=== PATIENT | male | born 1955 | race Caucasian/White ===

== ENCOUNTER 2017-04-28 14:31 | Emergency (ER) | payer OTHER, BC ==
[~2017-04-28] VITALS: Ht 190.5 cm; Wt 97.4 kg
[~2017-04-28 14:31] MED LIST: ASPIRIN EC81 MG PO; ATROVENT HFA12.9 GM INH; FAMOTIDINE20 MG PO; GUIATUSS AC SY120 ML PO; HYDROMORPHONE HC4 MG PO; IBUPROFEN800 MG PO; KEFLEX500 MG PO; LANTUS100 UNITS/ SUB-Q; LISINOPRIL40 MG PO; NORCO 10-325 T1 EACH PO; NORCO 5-325 TA1 EACH PO; PROVENTIL HFA6.7 GM INH; ULTRAM50 MG PO; XOPENEX HFA15 GM INH; ZOLOFT25 MG PO
[2017-04-28] MEDS ORDERED: HYDROCODON-ACE1 EAC8 PO (14:40)
== END 2017-04-28 15:54 | disposition home or self-care (01) ==
LOC: ED 14:31
DX: S90.32XA Contusion of left foot, initial encounter (principal); E11.9 Type 2 diabetes mellitus without complications; I10 Essential (primary) hypertension; F17.200 Nicotine dependence, unspecified, uncomplicated; Z79.4 Long term (current) use of insulin; Z79.899 Other long term (current) drug therapy; W20.8XXA Other cause of strike by thrown, projected or falling object, initial encounter; Y92.69 Other specified industrial and construction area as the place of occurrence of the external cause; Y99.0 Civilian activity done for income or pay
CPT/HCPCS: 73630; 99283

== ENCOUNTER 2019-02-24 10:27 | Emergency (ER) | payer BC ==
[~2019-02-24] VITALS: Ht 190.5 cm; Wt 97.4 kg
[~2019-02-24 10:27] MED LIST changes: +HYDROCODON-ACE1 EAC8 PO
--- OUTSIDE RECORDS SUMMARY | 2019-02-24 10:30 | XMS ---
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 Maru has no Care Guidelines for this patient. Selam VISIT COUNT (12 MO.) 1 TONE Bernabe TOTAL 1 NOTE: Visits indicate total known visits. ED/UCC VISIT TRACKING (12 MO.) 02/24/2019 10:29 TONE [place] TYPE: Emergency COMPLAINT: - UPPER LEFT CHEST PAIN INPATIENT VISIT TRACKING (12 MO.) No inpatient visits to display in this time frame [email or web address]
[2019-02-24] MEDS ORDERED: NORCO 7.5-3251 EACH PO (11:47)
== END 2019-02-24 11:59 | disposition home or self-care (01) ==
LOC: ED 10:27
DX: S29.011A Strain of muscle and tendon of front wall of thorax, initial encounter (principal); X50.9XXA Other and unspecified overexertion or strenuous movements or postures, initial encounter; E11.9 Type 2 diabetes mellitus without complications; I10 Essential (primary) hypertension; F17.200 Nicotine dependence, unspecified, uncomplicated; Z79.4 Long term (current) use of insulin; Z79.899 Other long term (current) drug therapy
CPT/HCPCS: 71046; 96372; 99284-25; 99406; J1885

== ENCOUNTER 2020-07-14 11:21 | Emergency (ER) | payer BC ==
[~2020-07-14] VITALS: Ht 188 cm; Wt 83.0 kg
[~2020-07-14 11:21] MED LIST changes: +NORCO 7.5-3251 EACH PO
[2020-07-14] MEDS ORDERED: PERCOCET 5-3251 EACH PO (11:45)
[2020-07-14] MEDS ORDERED: MORPHINE SULFAT15 M1 PO (11:50)
[2020-07-14] MEDS ORDERED: PREDNISONE20 MG PO (12:31)
[2020-07-14] MEDS ORDERED: DOXYCYCLINE HY100 MG PO (12:31)
[2020-07-14] MEDS ORDERED: VENTOLIN HFA18 GM INH (12:31)
--- NOTE | 2020-07-14 13:19 | EKG ---
[facility] [address] [facility] [place], [place] [address] Signed Normal sinus rhythm Right bundle branch block Abnormal ECG No previous ECGs available Confirmed by JT HAN DO ([id number]) on 07/14/2020 1:19:36 PM Electronically Signed By: JT HAN DO 07/14/20 1319 PATIENT NAME: LAY KIDD Electrocardiogram DATE OF : 59 PHYSICIAN: JT HAN DO REPORT #: [id number] REPORT IS CONFIDENTIAL AND NOT TO BE RELEASED WITHOUT AUTHORIZATION
== END 2020-07-14 12:47 | disposition home or self-care (01) ==
LOC: ED 11:21
DX: J40 Bronchitis, not specified as acute or chronic (principal); R07.89 Other chest pain; E11.9 Type 2 diabetes mellitus without complications; I10 Essential (primary) hypertension; F17.200 Nicotine dependence, unspecified, uncomplicated; Z79.4 Long term (current) use of insulin; Z79.899 Other long term (current) drug therapy; Z79.891 Long term (current) use of opiate analgesic
CPT/HCPCS: 71045; 80053; 83735; 84484; 85025; 85379; 93005; 93010; 96374; 96375; 99285-25; J2270; J2405

== ENCOUNTER 2022-04-10 13:41 | Emergency (ER) | payer OTHER ==
[~2022-04-10] VITALS: Ht 188 cm; Wt 90.7 kg
[~2022-04-10 13:41] MED LIST changes: +DOXYCYCLINE HY100 MG PO; +MORPHINE SULFAT15 M1 PO; +PERCOCET 5-3251 EACH PO; +PREDNISONE20 MG PO; +VENTOLIN HFA18 GM INH
--- OUTSIDE RECORDS SUMMARY | 2022-04-10 13:44 | XMS ---
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 ERoger VISIT COUNT (12 MO.) 1 TONE Bernabe TOTAL 1 NOTE: Visits indicate total known visits. ED/UCC VISIT TRACKING (12 MO.) 04/10/2022 13:42 TONE [place] TYPE: Emergency COMPLAINT: - DIFFICULTY BREATHING INPATIENT VISIT TRACKING (12 MO.) No inpatient visits to display in this time frame [id number]
[2022-04-10] MEDS ORDERED: DULOXETINE HCL30 MG PO (13:59)
[2022-04-10] MEDS ORDERED: PREDNISONE20 MG PO (16:49)
--- NOTE | 2022-04-10 19:17 | EKG ---
[facility] [address] [facility] [place] [address] Signed Normal sinus rhythm with sinus arrhythmia Right bundle branch block Abnormal ECG When compared with ECG of 14-JUL-2020 11:26, ST elevation now present in Inferior leads Confirmed by CHARLES HARE MD ([id number]) on 04/10/2022 7:17:27 PM Electronically Signed By: CHARLES HARE MD 04/10/221916 PATIENT NAME: EDGARDO KIDDMARÍA CELESTE Electrocardiogram DATE OF : 59 PHYSICIAN: CHARLES HARE MD REPORT #: [id number] REPORT IS CONFIDENTIAL AND NOT TO BE RELEASED WITHOUT AUTHORIZATION
== END 2022-04-10 17:00 | disposition home or self-care (01) ==
LOC: ED 13:41
DX: J44.9 Chronic obstructive pulmonary disease, unspecified (principal); I10 Essential (primary) hypertension; E11.9 Type 2 diabetes mellitus without complications; F17.200 Nicotine dependence, unspecified, uncomplicated; Z71.6 Tobacco abuse counseling; Z79.899 Other long term (current) drug therapy; Z79.4 Long term (current) use of insulin
CPT/HCPCS: 36415; 71045; 80053; 83735; 84484; 85025; 85379; 93005; 93010; 94640; 94664; 99285-25; 99406; J7512

== ENCOUNTER 2022-11-27 07:45 | Day surgery (SDC) | payer MEDICARE, OTHER ==
[2022-11-19 10:13] VITALS: BP 126/82
[~2022-11-27] VITALS: Ht 188 cm; Wt 88.6 kg
[~2022-11-27 07:45] MED LIST changes: +BAYER CHEWABLE81 MG PO; +DULOXETINE HCL30 MG PO; -PERCOCET 5-3251 EACH PO; +PERCOCET 7.5-31 EACH PO; +PRAVASTATIN SOD40 MG PO; +SENNA8.6 MG PO; +VENTOLIN HFA18 GM
[2022-11-27 07:55] VITALS: BP 144/77
--- NOTE | 2022-11-27 10:33 | NUR ---
11/27/22 1033 Comfort Mejia 1027-PT TO PACU IN LL POSITION. EYES CLOSED. PT RESPONDS TO VERBAL AND TACTILE STIMULI. KEEPS EYES CLOSED DOES NOT FOLLOW COMMANDS. BREATHING EASY AND UNLABORED. SPO2 >95% ON 2 L O2 VIA NC. 1033-PT SLEEPING COMFORTABLY IN LL POSITION. EYES CLOSED. PT REPOSITIONS SELF IN LL POSITION. BREATHING EASY AND UNLABORED. SPO2 >95% ON 2 L O2 VIA NC.
[2022-11-27 11:07] VITALS: BP 122/64
--- NOTE | 2022-11-28 07:32 | OR ---
[facility] [address] [place], [place] [address] Signed DATE OF OPERATION: 11/27/2022 SURGEON: Jaspreet Stein MD PREOPERATIVE DIAGNOSIS: Screening. POSTOPERATIVE DIAGNOSES: 1. 7 mm sessile polyp at 60 cm (left colon, snare). 2. Minimal internal hemorrhoids. PROCEDURE: Colonoscopy with snare polypectomy. ESTIMATED BLOOD LOSS: None. INDICATIONS: Lay is a 67-year-old gentleman, asked to see me for a colonoscopy. He spoke of a negative colonoscopy more than 10 years ago while he was living in [facility]. He is also known to have history of hepatitis C with cirrhosis of the liver and portal hypertension. He was treated for the hepatitis C and now the counts are undetectable. He said his blood work and his splenomegaly have stabilized. He always has some thrombocytopenia with a platelet count around 100,000. He has had his gallbladder [place] [address] Mendoza. He said he is adopted and has no knowledge of his family history. He had a lung nodule evaluated by his dry cure worker was turned out to be negative. Apparently, it was due to his emphysema. He said overall he does not feel well and now on Medicare. In the office, I had given him a pamphlet on colonoscopy. We reviewed the nature of the test. There is risk including, but not limited to gas bloating, crampy abdominal pain, bleeding, perforation requiring surgery, and missed diagnosis. We also discussed the need for monitored anesthesia care given his advanced medical issues including his cirrhosis and daily need for narcotics. He had expressed understanding and wished to proceed. PROCEDURE NOTE: Lay was taken into our endoscopy suite and placed in the left lateral decubitus position. He was given monitored anesthesia care with propofol per our nurse gaming cage worker. A digital rectal exam was performed and this was unremarkable. Really no external hemorrhoids. Good sphincter tone. We did not specifically check the prostate. The adult colonoscope was introduced and advanced under direct visualization of the Electronically Signed By: JASPREET STEIN MD 11/28/22 0732 PATIENT NAME: LAY KIDD OPERATIVE REPORT DATE OF : 59 REPORT #: [id number] PHYSICIAN: JASPREET STEIN MD PCP: VERA VALENCIA REPORT IS CONFIDENTIAL AND NOT TO BE RELEASED WITHOUT AUTHORIZATION [facility] [address] [place], [place] [address] Signed camera. We needed a little extra sedation and abdominal compression to get the scope directly into the cecum itself. His prep was quite good. We could easily see the appendiceal orifice and the ileocecal valve. The scope was then slowly withdrawn. He had a 7 mm sessile polyp back at 60 cm in his left colon. We removed it easily with the help of the snare and suctioned it through our scope for pathologic review. All hemostasis was excellent. We did not see any diverticula. The rectum was unremarkable. Upon retroflexion of the scope, he has minimal internal hemorrhoid columns. After this, the gas was suctioned out and the colonoscope removed. Lay tolerated the procedure quite well. RECOMMENDATIONS: I will see Lay back in my office in 7 to 14 days to review his results. Jaspreet Stein MD ALB/MODL /[id number] cc: MD Vera Chiang PA Copies: JASPREET STEIN MD, JUDITH PA ~ Electronically Signed By: JASPREET STEIN MD 11/28/22 0732 PATIENT NAME: LAY KIDD OPERATIVE REPORT DATE OF : 59 REPORT #: [id number] PHYSICIAN: JASPREET STEIN MD PCP: VERA VALENCIA REPORT IS CONFIDENTIAL AND NOT TO BE RELEASED WITHOUT AUTHORIZATION
--- NOTE | 2022-11-29 14:51 | PATH ---
[facility] [address] [facility] [place], [place] [address] Signed SPECIMEN(S): A COLON BIOPSY AT 60 CM SPECIMEN SOURCE: A. COLON BIOPSY AT 60 CM CLINICAL HISTORY: Screening. FINAL PATHOLOGIC DIAGNOSIS: Colon biopsy at 60 cm: - Tubular adenoma (one fragment). JVR:[facility] MICROSCOPIC EXAMINATION: Histologic sections of all submitted blocks are examined by light microscopy. These findings, together with the gross examination, support the pathologic diagnosis. GROSS DESCRIPTION: The specimen, labeled and designated "Nathan colon biopsy at 60 cm," is received in formalin and consists of one pérez soft tissue fragment, 0.4 cm. Entirely submitted in (A1). JS (under the direct supervision of a pathologist) The Gross Description was prepared using a voice recognition system. The report was reviewed for accuracy; however, sound-alike word errors, addition and/or deletions may occur. If there is any question about this report, please contact Client Services. PERFORMING LABORATORY: Technical component was performed by [facility], [address] [place] [address] (CLIA# [id number]). Professional interpretation was performed by [facility], [address] [place] [id number] (CLIA#: [id number]). Diagnostician: Hussain Villra MD Pathologist Electronically Signed 11/29/2022 Copies: PATIENT NAME: LAY KIDD PATHOLOGY DATE OF : 59 REPORT #: [id number] PHYSICIAN: STEVAN PATHOLOGY PCP: KONRAD VALENCIA REPORT IS CONFIDENTIAL AND NOT TO BE RELEASED WITHOUT AUTHORIZATION [address] [address] Signed ~ PATIENT NAME: LAY KIDD PATHOLOGY DATE OF : 59 REPORT #: [id number] PHYSICIAN: STEVAN HA PCP: KONRAD VALENCIA REPORT IS CONFIDENTIAL AND NOT TO BE RELEASED WITHOUT AUTHORIZATION
== END 2022-11-27 11:05 | disposition home or self-care (01) ==
LOC: DS 07:45 → OPS 07:45 → DS 09:00 → OPS 09:00
PROVIDERS: ATTEND Colon & Rectal Surgery
PROC: 0DBM8ZX Excision of Descending Colon, Via Natural or Artificial Opening Endoscopic, Diagnostic (ICD-10-PCS; principal; 2022-11-27 09:00)
DX: Z12.11 Encounter for screening for malignant neoplasm of colon (principal); K74.60 Unspecified cirrhosis of liver; J44.9 Chronic obstructive pulmonary disease, unspecified; G89.4 Chronic pain syndrome; F32.A Depression, unspecified; E11.9 Type 2 diabetes mellitus without complications; I10 Essential (primary) hypertension; K64.8 Other hemorrhoids; D12.4 Benign neoplasm of descending colon
CPT/HCPCS: 00812; J2704; J7121

== ENCOUNTER 2024-08-20 09:15 | Emergency (ER) | payer MEDICARE, MEDICAID ==
[~2024-08-20] VITALS: Ht 188 cm; Wt 81.7 kg
[2024-08-20] MEDS ORDERED: PERCOCET 5-3251 EACH PO (09:31)
[2024-08-20] MEDS ORDERED: HYDROmorphone HCL 1 MG/ML SYR IM ONE (10:15)
[2024-08-20] MEDS ORDERED: CYCLOBENZAPRINE HCL 10 MG TAB PO ONE (10:15)
[2024-08-20 11:17] VITALS: BP 127/79
== END 2024-08-20 11:17 | disposition home or self-care (01) ==
LOC: ED 09:15
DX: M54.2 Cervicalgia (principal); I10 Essential (primary) hypertension; E11.9 Type 2 diabetes mellitus without complications; Z87.81 Personal history of (healed) traumatic fracture; F17.200 Nicotine dependence, unspecified, uncomplicated
CPT/HCPCS: 96372; 99283; J1171

== ENCOUNTER 2024-12-12 20:07 | Emergency (ER) | payer MEDICARE ==
[~2024-12-12] VITALS: Ht 188 cm; Wt 81.5 kg
[~2024-12-12 20:07] MED LIST changes: +PERCOCET 5-3251 EACH PO
[2024-12-12] MEDS ORDERED: ASPIRIN 81 MG CHEW ONE (20:10)
[2024-12-12] MEDS ORDERED: ASPIRIN 81 MG CHEW PO ONE (20:15)
[2024-12-12] MEDS ORDERED: NITROGLYCERIN 0.4 MG SUBL SL PRN (20:15)
[2024-12-12 20:18] LABS: BASOPHILS 0.2 % (0.2-1.2); EOSINOPHILS 2.3 % (0.8-7.0); LYMPHOCYTES 15.7 % (21.8-53.1); MCH 29.2 PG (25.7-32.2); MCHC 33.3 g/dL (32.3-36.5); MCV 87.7 fL (79.0-92.2); MONOCYTES 6.6 % (5.3-12.2); NEUTROPHILS 74.9 % (34.0-67.9); RBC 5.28 M/uL (4.63-6.08)
[2024-12-12 20:27] LABS: INR 1.04 (0.80-1.30); PROTIME 12.9 Sec (11.2-14.2)
[2024-12-12 20:35] LABS: ALT (SGPT) 22.0 U/L (14-59); AST (SGOT) 15.0 U/L (15-37); GLOMERULAR FILTRATION RATE,EST 82.0 mL/min (>60); PROTEIN, TOTAL 7.6 g/dL (6.4-8.2); UREA NITROGEN 15.0 mg/dL (7-18)
[2024-12-12 22:44] LABS: BLOOD/HGB, URINE NEGATIVE (Negative); KETONE, URINE NEGATIVE (Negative); LEUK ESTERASE, URINE NEGATIVE (negative); NITRITE, URINE NEGATIVE (negative)
[2024-12-12] MEDS ORDERED: MORPHINE SULFATE 4 MG/ML VIAL IV ONE (23:00)
[2024-12-12] MEDS ORDERED: CYCLOBENZAPRINE10 MG PO (23:17)
[2024-12-12] MEDS ORDERED: CYCLOBENZAPRINE HCL 10 MG HOME.PACK PO ONE (23:30)
[2024-12-12 23:35] VITALS: BP 117/66
--- NOTE | 2024-12-13 07:37 | EKG ---
[facility] [address] [facility] [place] [address] Signed Normal sinus rhythm Right atrial enlargement Right bundle branch block Abnormal ECG No previous ECGs available Confirmed by COLTILDE OLEARY MD ([id number]) on 12/13/2024 7:36:52 AM Electronically Signed By: CLOTILDE OLEARY 12/13/24 0737 PATIENT NAME: LAY KIDD Electrocardiogram DATE OF : 59 PHYSICIAN: CLOTILDE OLEARY REPORT #: [id number] REPORT IS CONFIDENTIAL AND NOT TO BE RELEASED WITHOUT AUTHORIZATION
== END 2024-12-12 23:35 | disposition home or self-care (01) ==
LOC: ED 20:07
PROVIDERS: Family Medicine
DX: R07.89 Other chest pain (principal); E11.9 Type 2 diabetes mellitus without complications; I10 Essential (primary) hypertension; F17.200 Nicotine dependence, unspecified, uncomplicated; Z79.899 Other long term (current) drug therapy
CPT/HCPCS: 36415; 71045; 80053; 81003; 83690; 83735; 83880; 84484; 85025; 85379; 85610; 93005; 93010; 96374; 99285-25; A9270; J2270